=== PATIENT | female | born 1975 | race Caucasian/White ===

== ENCOUNTER 2016-08-24 22:04 | Emergency (ER) | payer MEDICAID ==
[~2016-08-24] VITALS: Ht 162.6 cm; Wt 109.5 kg
[~2016-08-24 22:04] MED LIST: FERR27TA PO; PREN1TAB12 PO
[2016-08-24 22:06] VITALS: Ht 162.6 cm; Wt 109.5 kg
[2016-08-24] MEDS ORDERED: morphine 4 MG/ML VIAL IV STA (23:03)
[2016-08-24] MEDS ORDERED: ONDANSETRON 4 MG INJ IV STA (23:03)
[2016-08-24 23:57] LABS: ADD SCAN DIFF NO
[2016-08-24 23:59] LABS: BASOPHILS % 0.3 % (0.0-2.0); EOSINOPHILS % 0.2 % (0.0-7.0); HEMATOCRIT 40.6 % (37.0-47.0); HEMOGLOBIN 12.7 g/dl (12.0-16.0); LYMPHOCYTES # 1.3 10^3/ul (0.8-2.9); LYMPHOCYTES % 10.6 % (15.0-51.0); MEAN CORPUSCULAR HEMOGLOBIN 25.7 pg (29.0-33.0); MEAN CORPUSCULAR HGB CONC 31.3 g/dl (32.0-37.0); MEAN PLATELET VOLUME 9.3 fl (7.4-10.4); MONOCYTE # 0.7 10^3/ul (0.3-0.9); MONOCYTES % 5.8 % (0.0-11.0); NEUTROPHIL # 10.5 10^3/ul (1.6-7.5); NEUTROPHILS % 82.7 % (39.0-77.0); PLATELET COUNT 362 10^3/UL (140-415); RED BLOOD COUNT 4.95 10^6/ul (4.20-5.40); RED CELL DISTRIBUTION WIDTH 17.2 % (11.5-14.5); WHITE BLOOD COUNT 12.7 10^3/ul (4.8-10.8)
[2016-08-25 00:02] LABS: ADD UMIC YES; URINE BILIRUBIN (Dip) NEGATIVE (NEGATIVE); URINE BLOOD (Dip) TRACE (NEGATIVE); URINE COLOR LT. YELLOW (YELLOW); URINE GLUCOSE (Dip) NEGATIVE (NEGATIVE); URINE KETONES (Dip) NEGATIVE (NEGATIVE); URINE LEUKOCYTE ESTERASE (Dip) NEGATIVE (NEGATIVE); URINE NITRITE (Dip) NEGATIVE (NEGATIVE); URINE TOTAL PROTEIN (Dip) NEGATIVE (NEGATIVE); URINE UROBILINOGEN (Dip) 1.0 E.U./dL (0.1-1.0)
[2016-08-25 00:09] LABS: INR 0.92; PROTIME 12.4 Sec (12.2-14.2)
[2016-08-25 00:12] LABS: ALBUMIN 4.7 g/dl (3.3-4.9); ALBUMIN/GLOBULIN RATIO 5.22; BILIRUBIN,INDIRECT 0.1 mg/dl (0-1.1); BILIRUBIN,TOTAL 0.1 mg/dl (0.2-1.3); CALCIUM 9.4 mg/dl (8.4-10.2); CREATININE 0.82 mg/dl (0.44-1.00); POTASSIUM 4.2 mmol/L (3.5-5.1); TOTAL PROTEIN 5.6 g/dl (6.1-8.1)
--- NOTE | 2016-08-25 00:12 | RADRPT ---
PROCEDURE: Right upper quadrant ultrasound. CLINICAL INDICATION: Abdominal pain. TECHNIQUE: Multiple real-time longitudinal and transverse images of the right upper quadrant of th e abdomen were acquired utilizing a curved array transducer. Images were reviewed on a high-resoluti on PACS workstation. COMPARISON: None. FINDINGS: The pancreas is obscured by overlying bowel gas. The liver is normal in echogenicity. The liver measures 17.3 cm in length. No hepatic lesion or in trahepatic biliary ductal dilatation is seen. The portal vein is patent with hepatopetal flow. Sludge and stones are seen within the gallbladder lumen. A 12 mm stone is seen within the gallbladde r neck. The gallbladder wall is not thickened. There is no pericholecystic fluid. The sonographic M urphy's sign is positive. The common bile duct measures 4 mm in diameter, not dilated. The right kidney measures 10.4 cm in length. Renal echogenicity is normal. Two nonobstructing right renal stones measure up to 8 mm. There is no hydronephrosis or renal mass. The visualized portions of the aorta and IVC are unremarkable. IMPRESSION: 1. Cholelithiasis and a positive sonographic Montes De Oca's sign, suggestive of biliary colic. There is no gallbladder wall thickening to indicate cholecystitis. 2. No biliary dilatation. 3. Two nonobstructing right renal stones measuring up to 8 mm. 4. The pancreas is not visualized. RPTAT: HTAR .Narayan Mcclelland MD, Date Time Electronically viewed and signed by .Narayan Mcclelland MD, on 08/25/2016 00:12 .R/
[2016-08-25] MEDS ORDERED: SOD CHLORIDE 0.9% 100 ML ONE (00:19)
[2016-08-25] MEDS ORDERED: IOHEXOL 300MG/ML 150 ML BTL ONE (00:19)
[2016-08-25 00:24] LABS: PARTIAL THROMBOPLASTIN TIME 27.6 Sec (25.0-35.0)
[2016-08-25 00:29] LABS: BACTERIA,URINE FEW; MUCUS,URINE FEW; SQUAMOUS EPITHELIAL CELL,UR FEW
--- NOTE | 2016-08-25 01:35 | RADRPT ---
PROCEDURE: CT ABDOMEN/PELVIS WITH CONTRAST CLINICAL INDICATION: 40-year-old female with abdominal pain. TECHNIQUE: The study was performed utilizing a GE [email or web address] VCT 64-slice CT scanner. Direct axia l sections were obtained through the abdomen and pelvis with the use of 100 cc of Omnipaque-300 lilliana onic intravenous contrast material. Sagittal and coronal reformations were obtained. One or more of the following dose reduction techniques were utilized: automated exposure control, adjustment of the mA and/or kV according to patient's size or use of iterative reconstruction technique. The images were reviewed on a PACS workstation. CTD/vol = 23.5 mGy; Total Exam DLP = 1536.7 mGy-cm. COMPARISON: Right upper quadrant ultrasound August 24, 2016. FINDINGS: There is trace bibasilar subsegmental atelectasis. There is no evidence for significant pleural eff usion. The liver has a normal size and contour without focal areas of abnormal density or contrast enhancement. No intrahepatic nor extrahepatic biliary ductal dilatation is seen. The gallbladder dem onstrates no wall thickening nor pericholecystic fluid. No biliary stones are evident. The pancreas is without areas of abnormal attenuation or contrast enhancement. This spleen is identified and has a normal size without abnormal density or contrast enhancement. The adrenal glands are unremarkable . The kidneys are functional bilaterally. There is an ovoid hypodense focus within the mid left kid juwan measuring 4 x 4 mm which is too small to characterize by CT criteria. No hydroureteronephrosis n or nephroureterolithiasis is evident. The urinary bladder contains urine. There is mild retained sto ol within the ascending and transverse colon without obstruction. The appendix is visualized and is without edema or surrounding inflammatory reaction. The uterus is anteflexed. There is no signif icant pelvic free fluid. There is no significant free fluid. The aortoiliac vessels are without an eurysmal dilatation. The osseous structures are intact. IMPRESSION: 1. Mild retained stool within the proximal colon. 2. No CT evidence for appendicitis. .Filiberto Edwards MD, Date Time Electronically viewed and signed by .Filiberto Edwards MD, MD on 08/25/2016 01:35 .[place]
[2016-08-25] MEDS ORDERED: DICY10CA60 PO (01:47)
[2016-08-25] MEDS ORDERED: HYDR-906 PO (01:47)
--- NOTE | 2016-08-25 02:21 | ERD ---
ER Documentation Chief Complaint Date/Time DATE: 08/25/16 TIME: 02:16 Chief Complaint epigastric pain today HPI This patient is a 40-year-old female presenting to the emergency department for epigastric pain which began today. Symptoms are worsening. She is also had nausea. Pain radiates to the back. She denies chest pain, or shortness of breath, fevers, chills, or other symptoms. Symptoms are currently constant. No other symptoms reported currently. ROS All systems reviewed and are negative except as per history of present illness. Medications Home Meds Active Scripts Dicyclomine Hcl* (Bentyl*) 10 Mg Capsule, 10 MG PO QID, #15 CAP Prov:NATANAEL MARTINEZ PA-C 08/25/16 Hydrocodone/Acetaminophen (Emigrant 5-325 Tablet) 1 Each Tablet, 1 TAB PO Q6H Y for PAIN, #15 TAB Prov:NATANAEL MARTINEZ PA-C 08/25/16 Reported Medications Ferrous Sulfate (Iron) 1 Tab Tablet, 1 TAB PO 01/11/11 Vit/Fe Fumarate/Fa ( 1-1 Tablet) 1 Tab Tablet, 1 PO DAILY 01/11/11 Allergies Allergies: Coded Allergies: No Known Drug Allergies (Verified Allergy, 01/11/11) PMhx/Soc Medical and Surgical Hx: pt denies Medical Hx, pt denies Surgical Hx Hx Alcohol Use: No Hx Substance Use: No Hx Tobacco Use: No Smoking Status: Never smoker Physical Exam Vitals Vital Signs Date Time Temp Pulse Resp B/P Pulse Ox O2 Delivery O2 Flow Rate FiO2 08/24/16 22:06 98.6 88 20 166/77 100 Physical Exam Const: Nontoxic, well-appearing female in slight distress secondary to pain. Head: Atraumatic Eyes: Normal Conjunctiva ENT: Normal External Ears, Nose and Mouth. Neck: Full range of motion..~ No meningismus. Resp: Clear to auscultation bilaterally Cardio: Regular rate and rhythm, no murmurs Abd: Soft, there is tenderness palpation of the right upper quadrant, positive Montes De Oca sign, non distended. Normal bowel sounds Skin: No petechiae or rashes Back: No midline or flank tenderness Ext: No cyanosis, or edema Neur: Awake and alert Psych: Normal Mood and Affect Result Diagram: 08/24/16 6158 08/24/16 2348 Results 24 hrs Laboratory Tests Test 08/24/16 23:31 08/24/16 23:48 Urine Color LT. YELLOW Urine Clarity CLEAR Urine pH 6.0 Urine Specific Tiller 1.025 Urine Ketones NEGATIVE Urine Nitrite NEGATIVE Urine Bilirubin NEGATIVE Urine Urobilinogen 1.0 E.U./dL Urine Leukocyte Esterase NEGATIVE Urine Microscopic RBC 2-5/HPF Urine Microscopic WBC 0-2/HPF Urine Squamous Epithelial Cells FEW Urine Bacteria FEW Urine Mucus FEW Urine Hemoglobin TRACE Urine Glucose NEGATIVE% Urine Total Protein NEGATIVE White Blood Count 12.710^3/ul Red Blood Count 4.9510^6/ul Hemoglobin 12.7g/dl Hematocrit 40.6% Mean Corpuscular Volume 82.0fl Mean Corpuscular Hemoglobin 25.7pg Mean Corpuscular Hemoglobin Concent 31.3g/dl Red Cell Distribution Width 17.2% Platelet Count 68741^3/UL Mean Platelet Volume 9.3fl Neutrophils % 82.7% Lymphocytes % 10.6% Monocytes % 5.8% Eosinophils % 0.2% Basophils % 0.3% Nucleated Red Blood Cells % 0.0/100WBC Neutrophils # 10.510^3/ul Lymphocytes # 1.310^3/ul Monocytes # 0.710^3/ul Eosinophils # 0.010^3/ul Basophils # 0.010^3/ul Nucleated Red Blood Cells # 0.010^3/ul Prothrombin Time 12.4Sec Prothrombin Time Ratio 1.0 INR International Normalized Ratio 0.92 Activated Partial Thromboplast Time 27.6Sec Sodium Level 144mmol/L Potassium Level 4.2mmol/L Chloride Level 107mmol/L Carbon Dioxide Level 26mmol/L Anion Gap 15 Blood Urea Nitrogen 20mg/dl Creatinine 0.82mg/dl Glucose Level 109mg/dl Calcium Level 9.4mg/dl Total Bilirubin 0.1mg/dl Direct Bilirubin 0.00mg/dl Indirect Bilirubin 0.1mg/dl Aspartate Amino Transf (AST/SGOT) 100IU/L Alanine Aminotransferase (ALT/SGPT) 59IU/L Alkaline Phosphatase 124IU/L Total Protein 5.6g/dl Albumin 4.7g/dl Globulin 0.90g/dl Albumin/Globulin Ratio 5.22 Lipase 85U/L Current Medications Medications (Trade) Dose Ordered Sig/Patric Route PRN Reason Start Time Stop Time Status Last Admin Dose Admin Morphine Sulfate (morphine) 4 mg ONCE STAT IV 08/24/16 23:03 08/24/16 23:07 DC 08/24/16 23:51 Ondansetron HCl (Zofran Inj) 4 mg ONCE STAT IV 08/24/16 23:03 08/24/16 23:07 DC 08/24/16 23:51 IV Flush 10 ml 10 ml STK-MED ONCE .ROUTE 08/25/16 00:19 08/25/16 00:20 DC 08/25/16 00:45 Sodium Chloride (NS) 100 ml @ ud STK-MED ONCE .ROUTE 08/25/16 00:19 08/25/16 00:20 DC 08/25/16 00:45 Iohexol (Omnipaque 300mg/ ml) 150 ml STK-MED ONCE .ROUTE 08/25/16 00:19 08/25/16 00:20 DC 08/25/16 00:45 [place] [address] Radiology Main Line: [phone] DIAGNOSTIC IMAGING REPORT Patient: CONRADO QUIÑONEZ : 1975 Age: 40 Sex: F MR #: [id number] DOS: 08/24/16 2303 Ordering MD: NATANAEL MARTINEZ PA-C Location: [facility] Room/Bed: PROCEDURE: CT ABDOMEN/PELVIS WITH CONTRAST CLINICAL INDICATION: 40-year-old female with abdominal pain. TECHNIQUE: The study was performed utilizing a GE xkotopeed VCT 64-slice CT scanner. Direct axial sections were obtained through the abdomen and pelvis with the use of 100 cc of Omnipaque-300 nonionic intravenous contrast material. Sagittal and coronal reformations were obtained. One or more of the following dose reduction techniques were utilized: automated exposure control, adjustment of the mA and/or kV according to patient's size or use of iterative reconstruction technique. The images were reviewed on a PACS workstation. CTD/ vol = 23.5 mGy; Total Exam DLP = 1536.7 mGy-cm. COMPARISON: Right upper quadrant ultrasound August 24, 2016. FINDINGS: There is trace bibasilar subsegmental atelectasis. There is no evidence for significant pleural effusion. The liver has a normal size and contour without focal areas of abnormal density or contrast enhancement. No intrahepatic nor extrahepatic biliary ductal dilatation is seen. The gallbladder demonstrates no wall thickening nor pericholecystic fluid. No biliary stones are evident. The pancreas is without areas of abnormal attenuation or contrast enhancement. This spleen is identified and has a normal size without abnormal density or contrast enhancement. The adrenal glands are unremarkable. The kidneys are functional bilaterally. There is an ovoid hypodense focus within the mid left kidney measuring 4 x 4 mm which is too small to characterize by CT criteria. No hydroureteronephrosis nor nephroureterolithiasis is evident. The urinary bladder contains urine. There is mild retained stool within the ascending and transverse colon without obstruction. The appendix is visualized and is without edema or surrounding inflammatory reaction. The uterus is anteflexed. There is no significant pelvic free fluid. There is no significant free fluid. The aortoiliac vessels are without aneurysmal dilatation. The osseous structures are intact. IMPRESSION: 1. Mild retained stool within the proximal colon. 2. No CT evidence for appendicitis. .Filiberto Edwards MD, MD Date Time Electronically viewed and signed by .Filiberto Edwards MD, on 08/25/2016 01:35 .M/ CC: NATANAEL MARTINEZ PA-C PROCEDURE: Right upper quadrant ultrasound. CLINICAL INDICATION: Abdominal pain. TECHNIQUE: Multiple real-time longitudinal and transverse images of the right upper quadrant of the abdomen were acquired utilizing a curved array transducer. Images were reviewed on a high-resolution PACS workstation. COMPARISON: None. FINDINGS: The pancreas is obscured by overlying bowel gas. The liver is normal in echogenicity. The liver measures 17.3 cm in length. No hepatic lesion or intrahepatic biliary ductal dilatation is seen. The portal vein is patent with hepatopetal flow. Sludge and stones are seen within the gallbladder lumen. A 12 mm stone is seen within the gallbladder neck. The gallbladder wall is not thickened. There is no pericholecystic fluid. The sonographic Montes De Oca's sign is positive. The common bile duct measures 4 mm in diameter, not dilated. The right kidney measures 10.4 cm in length. Renal echogenicity is normal. Two nonobstructing right renal stones measure up to 8 mm. There is no hydronephrosis or renal mass. The visualized portions of the aorta and IVC are unremarkable. IMPRESSION: 1. Cholelithiasis and a positive sonographic Montes De Oca's sign, suggestive of biliary colic. There is no gallbladder wall thickening to indicate cholecystitis. 2. No biliary dilatation. 3. Two nonobstructing right renal stones measuring up to 8 mm. 4. The pancreas is not visualized. RPTAT: HTAR .Narayan Mcclelland MD, MD Date Time Electronically viewed and signed by .Narayan Mcclelland MD, MD on 08/25/2016 00:12 .R/ Procedures/[facility] EMERGENCY DEPARTMENT COURSE / MEDICAL DECISION MAKING: This is a 40-year-old female who comes to the emergency room secondary to complaints of midepigastric and right upper abdominal pain. The patient was given IV morphine, IV Zofran in the department. On re-evaluation , the patient was feeling improved. Lab results reviewed and showed slight leukocytosis with left shift but not significant. AST was slightly elevated at 100 but not significant and may be due to fatty liver disease or incidental finding. The patient was advised to follow-up with her primary care physician regarding all abnormal lab results. Urinalysis is negative for infection, hematuria, or proteinuria. Radiology: IMPRESSION of gall bladder US: 1. Cholelithiasis and a positive sonographic Montes De Oca's sign, suggestive of biliary colic. There is no gallbladder wall thickening to indicate cholecystitis. 2. No biliary dilatation. 3. Two nonobstructing right renal stones measuring up to 8 mm. 4. The pancreas is not visualized. IMRESSION of abd CT scan: 1. Mild retained stool within the proximal colon. 2. No CT evidence for appendicitis. The primary diagnosis is gallstones. I have low suspicion for cholecystitis, appendicitis, bowel obstruction, mesenteric ischemia, septicemia, or other emergent conditions at this time. Discharge: I have discussed the lab results and diagnostic findings with the patient and answered any questions or concerns. The patient was discharged with a prescription for Emigrant. The patient was advised to followup with their PMD in 1-2 days and to return to the Emergency Department if there are any new or worsening symptoms. The patient understood and agreed with the diagnosis, treatment and plan. The patient is stable for discharge at this time. Departure Diagnosis: Primary Impression: Gallstones Condition: Fair Patient Instructions: What Are Gallstones? Additional Instructions: No mas mejor en 2-3 padgett, regresar. Mas peor en 24 horas, regresear rapidamente. Ir a doctor primario in 5-7 padgett. Usar instrucciones cuando marko medicamento. NATANAEL MARTINEZ PA-C Aug 25, 2016 02:21
== END 2016-08-25 01:48 | disposition home or self-care (01) ==
LOC: FTE 22:04
DX: K80.20 Calculus of gallbladder without cholecystitis without obstruction (principal); R10.2 Pelvic and perineal pain
CPT/HCPCS: 36415; 74177; 76705; 80053; 81001; 83690; 85025; 85610; 85730; 96374; 96375; J2270; J2405; Q9967; Z7502; Z7610

== ENCOUNTER 2016-08-25 11:38 | Inpatient (IN) | payer MEDICAID ==
[~2016-08-25] VITALS: Ht 167.6 cm; Wt 109.1 kg
[~2016-08-25 11:38] MED LIST changes: +DICY10CA60 PO; +HYDR-906 PO
[2016-08-25] MEDS ORDERED: ONDANSETRON (ODT) 4 MG TAB ODT STA (12:46)
--- NOTE | 2016-08-25 12:46 | ERD ---
ER Documentation Chief Complaint Date/Time DATE: 08/25/16 TIME: 12:41 Chief Complaint ap with nausea x 1 day HPI 40-year-old female who presented emergency department for abdominal pain with nausea. Stated that she was here yesterday for the same complaint, diagnostic imaging, blood works was done and was discharged with final diagnosis of gallstones and was prescribed with hydrocodone, dicyclomine. Denies headache, loss of consciousness, dizziness, blurry vision, changes in vision, photophobia, facial pain, ear pain, throat pain, difficulty swallowing, neck pain, shoulder pain, chest pain, cough, hemoptysis, back pain, loss of appetite, hematochezia, diarrhea, constipation, urinary symptoms, , the possibility of being , bladder and bowel incontinences, extremity weakness, extremity tenderness, numbness or tingling sensation, difficulty walking, recent travel, recent exposure to illness, recent antibiotic use in the last 3 months, fever, chills. Allergy: No known drug allergies. PMH: Denies. Family medical history: Denies. A0. LMP: August 12, 2016. Medications: Hydrocodone. Dicyclomine. Surgery: Denies. Primary Social History: Not working at this time. Occasional drinks alcoholic beverages. Denies smoking, use of illegal drugs. ROS All systems reviewed and are negative except as per history of present illness. Medications Home Meds Active Scripts Dicyclomine Hcl* (Bentyl*) 10 Mg Capsule, 10 MG PO QID, #15 CAP Prov:NATANAEL MARTINEZ PA-C 08/25/16 Hydrocodone/Acetaminophen ([place] 5-325 Tablet) 1 Each Tablet, 1 TAB PO Q6H Y for PAIN, #15 TAB Prov:NATANAEL MARTINEZ PA-C 08/25/16 Reported Medications Ferrous Sulfate (Iron) 1 Tab Tablet, 1 TAB PO 01/11/11 Vit/Fe Fumarate/Fa ( 1-1 Tablet) 1 Tab Tablet, 1 PO DAILY 01/11/11 Allergies Allergies: Coded Allergies: No Known Drug Allergies (Verified Allergy, Unknown, 08/25/16) PMhx/Soc Hx Alcohol Use: No Hx Substance Use: No Hx Tobacco Use: No Physical Exam Vitals Vital Signs Date Time Temp Pulse Resp B/P Pulse Ox O2 Delivery O2 Flow Rate FiO2 6/14/17 11:47 98.7 67 18 130/67 100 Physical Exam CONSTITUTIONAL: Well-appearing; well-nourished; in no apparent distress. HEAD: Normocephalic; atraumatic. EYES: Conjunctiva clear, sclera non-icteric, EOM intact. PERRL Ears: Hearing intact. EACs clear, TMs non-bulging, non-inflamed, translucent & mobile, ossicles normal appearance, No obstructions, no erythema, no discharges Nose: No obstructions. No polyps. No external lesions. Mucosa non-inflamed. No external lesions, septum and turbinates normal. No rhinorrhea. No discharges. Frontal sinus is non-tender to palpation. Maxillary sinus is non-tender to palpation. MOUTH: Moist mucous membranes, no lesion, no obstructions, no vesicles, no thrush, patent airway Throat: Uvula in midline. Right tonsil is +1 with no erythema, no exudate. Left tonsil is +1 with no erythema, no exudate. Tolerating secretions well. Good gag reflex. Patent airway. Neck: Supple, without lesions, bruits, or adenopathy. No mass. Thyroid non- enlarged and non-tender to palpation. CHEST: Symmetrical chest. Respirations even and not labored. No retractions noted. CARDIOVASCULAR: Normal S1, S2. RRR. No murmurs, gallops. RESPIRATORY: Normal chest excursion with respiration; breath sounds clear and equal bilaterally; no wheezes, rhonchi, or rales. Breathing even and unlabored. Speaking in clear, full, and complete sentences w/ ease. ABDOMEN: Normal bowel sounds normal. No pulsating abdominal mass. Mild guarding at this time. His right upper abdominal tenderness on inspiration. : No CVA tenderness. BACK: Symmetrical shoulder. Spine is midline without deformity, tenderness. No evidence of trauma or deformity. PELVIS: Stable pelvis. No evidence of trauma or deformity. MUSCULOSKELETAL: Normal gait and station. No misalignment, asymmetry, crepitation, defects, tenderness, masses, effusions, decreased range of motion, instability, atrophy or abnormal strength or tone in the head, neck, spine, ribs , pelvis or extremities. No calf tenderness. NEUROVASCULAR: Distal pulses are present. Pedal pulse are present, equal, and normal. Capillary refills are < 2 seconds. NEUROLOGIC: Alert and oriented x4. Speaks full and clear sentences. Cranial Nerves II-XII normal. Sensation to pain, touch, and proprioception normal. Grossly unremarkable. No neurologic deficits. Romberg test is negative. PSYCHOLOGICAL: The patients mood and manner are appropriate. No hallucinations , delusions. Not SI. Not HI. Has the capacity to decide for self SKIN: Normal for age and ethnicity; warm; dry; good turgor; no apparent lesions or exudates. No rashes, hives, discoloration. Intact. Result Diagram: 08/25/16 1305 08/25/16 1305 Results 24 hrs Laboratory Tests Test 08/25/16 13:05 08/25/16 13:11 White Blood Count 8.410^3/ul Red Blood Count 5.3910^6/ul Hemoglobin 13.6g/dl Hematocrit 44.5% Mean Corpuscular Volume 82.6fl Mean Corpuscular Hemoglobin 25.2pg Mean Corpuscular Hemoglobin Concent 30.6g/dl Red Cell Distribution Width 17.6% Platelet Count 38385^3/UL Mean Platelet Volume 9.7fl Neutrophils % 77.4% Lymphocytes % 14.0% Monocytes % 7.9% Eosinophils % 0.1% Basophils % 0.2% Nucleated Red Blood Cells % 0.0/100WBC Neutrophils # 6.510^3/ul Lymphocytes # 1.210^3/ul Monocytes # 0.710^3/ul Eosinophils # 0.010^3/ul Basophils # 0.010^3/ul Nucleated Red Blood Cells # 0.010^3/ul Sodium Level 142mmol/L Potassium Level 4.1mmol/L Chloride Level 105mmol/L Carbon Dioxide Level 29mmol/L Anion Gap 12 Blood Urea Nitrogen 12mg/dl Creatinine 0.73mg/dl Glucose Level 105mg/dl Calcium Level 9.4mg/dl Total Bilirubin 0.6mg/dl Direct Bilirubin 0.10mg/dl Indirect Bilirubin 0.5mg/dl Aspartate Amino Transf (AST/SGOT) 295IU/L Alanine Aminotransferase (ALT/SGPT) 210IU/L Alkaline Phosphatase 172IU/L Total Protein 8.3g/dl Albumin 5.0g/dl Globulin 3.30g/dl Albumin/Globulin Ratio 1.51 Amylase Level 97U/L Lipase 80U/L Bedside Urine pH (LAB) 6.5 Bedside Urine Protein (LAB) Trace Bedside Urine Glucose (UA) Negative Bedside Urine Ketones (LAB) Negative Bedside Urine Blood Trace-lysed Bedside Urine Nitrite (LAB) Negative Bedside Urine Leukocyte Esterase (L Negative Current Medications Medications (Trade) Dose Ordered Sig/Patric Route PRN Reason Start Time Stop Time Status Last Admin Dose Admin Ondansetron HCl (Zofran Odt) 4 mg ONCE STAT ODT 08/25/16 12:46 08/25/16 12:48 DC 08/25/16 12:59 Acetaminophen/ Hydrocodone Bitart ([place] (10/325)) 1 tab ONCE ONCE PO 08/25/16 13:00 08/25/16 13:01 DC 08/25/16 12:59 Ondansetron HCl (Zofran Inj) 4 mg ONCE STAT IV 08/25/16 13:28 08/25/16 13:29 DC 08/25/16 14:30 Metoclopramide HCl (Reglan) 10 mg ONCE ONCE IV 08/25/16 14:30 08/25/16 14:31 DC 08/25/16 14:30 Morphine Sulfate (morphine) 4 mg ONCE STAT IV 08/25/16 14:08 08/25/16 14:14 DC 08/25/16 14:30 Procedures/MDM Examination: Please see physical examination. Disease process, medical treatment was explained to the patient and family member. They verbalized understanding and agreed with the diagnostic tests, medical treatment, and follow-up care. POC urine : Negative. POC urine dipstick: Reviewed. Blood works: Reviewed. Treatment: [place]. Zofran. IV insertion. Morphine IV. Reglan IV. Consultation: None. Differential diagnosis: Cholelithiasis Medical decision makin-year-old female who presented emergency department for abdominal pain with nausea. Stated that she was here yesterday for the same complaint, diagnostic imaging, blood works was done and was discharged with final diagnosis of gallstones and was prescribed with hydrocodone, dicyclomine. Patient's complaint, patient's history about her complaint, my physical findings, diagnostic test results are consistent with my final diagnosis of abdominal pain, cholelithiasis This case was discussed with attending physician, Dr. Nolan Cohen who agreed in my medical decision making. He also agreed to take over and continue to care for the patient. He also stated that he will continue the admission process for this patient. Departure Diagnosis: Primary Impression: Abdominal pain Additional Impression: Cholelithiasis TRIP BLISS Aug 25, 2016 12:46 back here in ED as soon as possible for severity of symptoms which includes but not limited to: any new symptoms; shortness of breath/difficulty of breathing; cardiovascular changes; severe gastrointestinal symptoms; signs and symptoms of bleeding and or infection; signs of compartment syndrome/neurovascular changes; neurological changes/deficits. Patient and family member verbalized understanding. Upon discharge, patient is alert and oriented x 4, speaks full and clear sentences, denies pain, has no neurological deficits, has no neurovascular deficits, difficulty of breathing. Breathing even and unlabored. Lung sounds are clear to auscultation. Not in distress. Appears comfortable. Ambulatory with steady gait. Appears satisfied with care provided here in ED. TRIP BLISS Aug 25, 2016 12:46
[2016-08-25] MEDS ORDERED: HYDROCODONE/APAP (10/325) TAB PO ONE (13:00)
[2016-08-25 13:08] LABS: URINE BLOOD (Dip) POC Trace-lysed (NEGATIVE)
[2016-08-25 13:13] LABS: ADD SCAN DIFF NO
[2016-08-25 13:25] LABS: BASOPHILS % 0.2 % (0.0-2.0); EOSINOPHILS % 0.1 % (0.0-7.0); HEMATOCRIT 44.5 % (37.0-47.0); HEMOGLOBIN 13.6 g/dl (12.0-16.0); LYMPHOCYTES # 1.2 10^3/ul (0.8-2.9); MEAN CORPUSCULAR HEMOGLOBIN 25.2 pg (29.0-33.0); MEAN CORPUSCULAR HGB CONC 30.6 g/dl (32.0-37.0); MEAN CORPUSCULAR VOLUME 82.6 fl (82.0-101.0); MEAN PLATELET VOLUME 9.7 fl (7.4-10.4); MONOCYTE # 0.7 10^3/ul (0.3-0.9); MONOCYTES % 7.9 % (0.0-11.0); NEUTROPHIL # 6.5 10^3/ul (1.6-7.5); NEUTROPHILS % 77.4 % (39.0-77.0); PLATELET COUNT 353 10^3/UL (140-415); RED BLOOD COUNT 5.39 10^6/ul (4.20-5.40); RED CELL DISTRIBUTION WIDTH 17.6 % (11.5-14.5); WHITE BLOOD COUNT 8.4 10^3/ul (4.8-10.8)
[2016-08-25] MEDS ORDERED: ONDANSETRON 4 MG INJ IV STA (13:28)
[2016-08-25 13:37] LABS: ALBUMIN/GLOBULIN RATIO 1.51; BILIRUBIN,DIRECT 0.1 mg/dl (0.00-0.20); BILIRUBIN,INDIRECT 0.5 mg/dl (0-1.1); BILIRUBIN,TOTAL 0.6 mg/dl (0.2-1.3); CALCIUM 9.4 mg/dl (8.4-10.2); CREATININE 0.73 mg/dl (0.44-1.00); POTASSIUM 4.1 mmol/L (3.5-5.1); TOTAL PROTEIN 8.3 g/dl (6.1-8.1)
[2016-08-25] MEDS ORDERED: morphine 4 MG/ML VIAL IV STA (14:08)
[2016-08-25] MEDS ORDERED: METOCLOPRAMIDE 10 MG INJ IV ONE (14:30)
[2016-08-25] MEDS ORDERED: ONDANSETRON 4 MG INJ IV PRN ×2 (17:00→17:30)
[2016-08-25] MEDS ORDERED: ACETAMINOPHEN 325 MG TAB PO PRN (17:00)
[2016-08-25] MEDS ORDERED: MAGNESIUM HYDROXIDE 30ML CUP PO PRN (17:30)
[2016-08-25] MEDS ORDERED: BISACODYL (EC) 5 MG TAB PO PRN (17:30)
[2016-08-25] MEDS ORDERED: METOCLOPRAMIDE 10 MG INJ IV PRN (17:30)
[2016-08-25] MEDS ORDERED: NACL 0.9% 3 ML SYG IV SCH (17:30)
[2016-08-25] MEDS ORDERED: morphine 2 MG INJ IV PRN (17:30)
[2016-08-25] MEDS ORDERED: HYDROCODONE/APAP (5/325) TAB PO PRN (17:30)
[2016-08-25 19:29] VITALS: PULSE 63; TEMP 98.1
--- NOTE | 2016-08-25 19:40 | HP ---
DATE OF ADMISSION: 08/25/2016 TIME OF EVALUATION: 1700 REASON FOR ADMISSION: Abdominal pain with nausea and vomiting x1 day. CONSULTATION: Dr. Link Hernandez, General Surgery. HISTORY OF PRESENT ILLNESS: This is a 40-year-old female who denied any significant past medical history who came to the emergency room with a chief complaint of abdominal pain with associated nausea and nonbilious, nonbloody vomiting. The patient was seen in the emergency room on 08/24/2016 with similar complaints and was noticed to have cholelithiasis and was discharged home with [place] and dicyclomine. The patient's pain was not getting better. Hence, she came back to the emergency room on 08/25/2016. The patient verbalized the abdominal pain as epigastric with radiation to the right side all the way to the lumbar spine. The patient verbalized 3 episodes of nonbilious vomiting on 08/24/2016 and 1 episode of nonbilious vomiting on 2016. The patient denied any fevers or chills. She denied any bladder or bowel irregularities. The patient denied any prior history of gallstones. In the emergency room, the patient was noticed to have transaminitis without hyperbilirubinemia. The patient's gallbladder ultrasound that was done on 08/24 showed cholelithiasis and a positive sonographic Mont[place] Oca sign suggestive of biliary colic with no gallbladder wall thickening to indicate cholecystitis with 2 nonobstructing right renal stones measuring up to 8 mm. The patient also underwent a CT scan of the abdomen and pelvis on 08/24/2016 that showed mild retained stool within the proximal colon with no evidence of appendicitis. PAST MEDICAL HISTORY: Denies. PAST SURGICAL HISTORY: . HOME MEDICATIONS: None. ALLERGIES: NO KNOWN DRUG ALLERGIES. SOCIAL HISTORY: The patient lives at home with her family. No use of tobacco, alcohol or illicit drugs. REVIEW OF SYSTEMS: A 12-point review of systems was made, and the review of systems is negative other than what is mentioned in the history of present illness. PHYSICAL EXAMINATION: VITAL SIGNS: Temperature 98.0, pulse rate 68, respiratory rate 18, blood pressure 114/69, oxygen saturation 98% on room air. GENERAL: This is a morbidly obese female lying in bed in no apparent distress. HEENT: Head normocephalic and atraumatic. Eyes: Anicteric sclerae. Conjunctivae clear. ENT: Nasal septum is midline. Oral mucosa is dry. NECK: Supple. No JVD noticed. RESPIRATORY: Bilaterally clear to auscultation. No adventitious breath sounds heard. No use of accessory muscles of respiration. CARDIAC: Regular rate and rhythm. No murmurs heard. ABDOMEN: Soft and nontender. Bowel sounds hypoactive in all 4 quadrants. Umbilical hernia, reducible. GENITOURINARY: Deferred. EXTREMITIES: No cyanosis, no clubbing, no edema. Peripheral pulses palpable. NEUROLOGIC: The patient is awake, alert and oriented. Cranial nerves are grossly intact. LABORATORY AND DIAGNOSTIC DATA: WBC 8.4, hemoglobin 13.6, hematocrit 44.5, platelet count 353. Sodium 142, potassium 4.1, chloride 105, anion gap 12, BUN 12, creatinine 0.73, glucose 105 , calcium 9.4, total bilirubin 0.6, direct bilirubin 0.10, indirect bilirubin 0.5, AST 295, ALT 210, alkaline phosphatase 172. Urinalysis: Urine ketones negative, urine nitrite negative, urine leukocyte esterase negative. CT scan of the abdomen and pelvis from 08/24/2016. Mild retained stool within the proximal colon. No CT evidence for appendicitis. Gallbladder ultrasound from 08/24/2016. Cholelithiasis and positive sonographic Montes De Oca sign suggestive of biliary colic. There is no gallbladder wall thickening to indicate cholecystitis. No biliary dilatation. Two nonobstructing right renal stones measuring up to 8 mm. The pancreas is not visualized. IMPRESSION: This is a 40-year-old female patient who is coming to the emergency room for the second time secondary to abdominal pain who was found to have evidence of cholelithiasis and will be admitted here for further treatment and evaluation. ASSESSMENT AND PLAN: 1. Symptomatic cholelithiasis. The patient will be provided with adequate pain control. The patient will be kept n.p.o. A general surgery consult will be called on this patient. The patient will be started on empiric antibiotics to treat any early cholangitis. 2. Transaminitis. Most probably secondary to #1. Will avoid hepatotoxic medications. Will trend LFTs. 3. Morbid obesity. Body mass index of 39.6 kg/meter squared. A fasting lipid panel will be obtained. A hemoglobin A1c will be obtained. Weight reduction will be advised. Plan. The patient will be admitted to inpatient medical/surgical floor. The patient will be kept n.p.o. except for medications. The patient will be started on IV fluids. The patient will be started on DVT prophylaxis and gastrointestinal prophylaxis. The patient will remain a FULL CODE. Activities will be as tolerated. The rest of the patient's management will be based on the clinical course, the results of diagnostic studies and input from consultants. Based on the patient's clinical presentation, she most probably requires at least 1 midnight's stay for further management and evaluation of her clinical presentation. The case and management of this patient was fully discussed with Dr. Sierra. ESTEPHANIE SIERRA MD, AM/MADDISON Conf#: [id number] DID#: [id number] MTDD
[2016-08-25 20:05] VITALS: Ht 167.6 cm; Wt 109.1 kg
[2016-08-25 20:19] VITALS: BP 106/59; RESP 18
--- NOTE | 2016-08-25 20:43 | CONS ---
DATE OF ADMISSION: 08/25/2016 DATE OF CONSULTATION: 08/25/2016 REASON FOR CONSULTATION: Abdominal pain. HISTORY OF PRESENT ILLNESS: The patient is an obese 40-year-old female who presented to [facility] emergency room complaining of epigastric and right upper quadrant abdominal pain. This pain has b een associated with nausea, but no vomiting. She was seen in the emergency room yesterday and diagn osed with gallstones without any evidence of acute cholecystitis on ultrasound or CT scan. She was therefore sent home with pain medication. However, her pain persisted and [facility] On arrival to the emergency room at this visit, she was found to have elevated transamin ases, though her bilirubin level was normal. Currently, she is comfortable in bed and her abdominal pain has resolved. She denies any abdominal pain to me at this time. She also denies any diarrhea , constipation, or fever/chills. PAST MEDICAL HISTORY: Otherwise negative. PAST SURGICAL HISTORY: . MEDICATIONS: None. ALLERGIES: NO KNOWN DRUG ALLERGIES. SOCIAL HISTORY: The patient does not smoke, drink, or do any illicit drugs. REVIEW OF SYSTEMS: A 14-point review of systems was conducted and was negative except for that whic h was mentioned in the HPI. PHYSICAL EXAMINATION: VITAL SIGNS: Temperature is 98.0, pulse 68, respirations 18, blood pressure 114/69, O2 saturation i s 98% on room air. GENERAL APPEARANCE: She is a well-developed, well-nourished, obese female who is awake, al ert, and oriented x3 and in no acute distress at this time. HEENT: Pupils are equal and reactive to light and accommodation. Extraocular muscles are intact. There is no scleral icterus. Skin is not jaundiced. NECK: Supple without JVD. CARDIOVASCULAR: S1, S2. Regular rate and rhythm. No murmurs appreciated. RESPIRATORY: Clear to auscultation bilaterally. ABDOMEN: Obese, soft. Bowel sounds are present. There is no epigastric or right upper quadrant te nderness at this time. Her abdominal exam is benign at this time. There is no evidence of rebound or guarding, or other signs of peritonitis. EXTREMITIES: Free range of motion x4. LABORATORY WORK: Shows a white blood cell count of 8.4, hemoglobin 13.6, platelet count of 353. So dium is 142, potassium is 4.1, chloride is 105, bicarbonate is 29, BUN 12, creatinine 0.73, glucose is 105. Albumin is 5.0. Total bilirubin 0.6, alkaline phosphatase 172, AST 295, ALT 210. Lipase i s 80. IMAGING STUDIES: A CT scan done yesterday shows mild retained stone within the proximal colon. The re is no evidence of acute cholecystitis. A gallbladder ultrasound done yesterday shows gallstones without any gallbladder wall thickening or pericholecystic fluid. RECOMMENDATIONS: This is a 40-year-old female with symptomatic cholelithiasis and possible choledoc holithiasis. Given the patient's elevated transaminases, it is likely that she passed a common bile duct stone. She is being admitted by the medical team for observation. MRCP is being ordered to evaluate for ch oledocholithiasis. If MRCP is positive for choledocholithiasis, then she will likely need GI consul tation with ERCP. If it is negative for choledocholithiasis and she remains pain free, then the pat ient could be discharged with outpatient followup for elective cholecystectomy. The above was discussed with the patient and the ER physician in detail. Further recommendations wi ll be made based on the patient's clinical course. Dictated By: SENTHIL GREEN/MADDISON Conf#: [id number] DID#: [id number] CC: JACOB SIERRA MD;*EndCC*
[2016-08-25] MEDS: D5W-0.45 NACL + KCL 20 MEQ 1,000 ML IV SCH (21:38)
[2016-08-25] MEDS: PIPER-TAZO 3.375 GM IV (PMX) 100 ML IVPB SCH (21:38)
[2016-08-25] MEDS: FAMOTIDINE 20 MG INJ IV SCH (23:05)
[2016-08-26] MEDS: D5W-0.45 NACL + KCL 20 MEQ 1,000 ML IV SCH ×3 (03:08→20:55)
[2016-08-26] MEDS: PIPER-TAZO 3.375 GM IV (PMX) 100 ML IVPB SCH ×3 (05:21→21:01)
[2016-08-26 05:25] LABS: ADD SCAN DIFF NO
[2016-08-26] MEDS: ACETAMINOPHEN 325 MG TAB PO PRN ×3 (05:26→23:03)
[2016-08-26 05:31] LABS: BASOPHILS % 0.8 % (0.0-2.0); EOSINOPHILS # 0.1 10^3/ul (0.0-0.5); EOSINOPHILS % 1.3 % (0.0-7.0); HEMATOCRIT 38.6 % (37.0-47.0); HEMOGLOBIN 11.8 g/dl (12.0-16.0); LYMPHOCYTES # 1.6 10^3/ul (0.8-2.9); LYMPHOCYTES % 29.7 % (15.0-51.0); MEAN CORPUSCULAR HEMOGLOBIN 25.5 pg (29.0-33.0); MEAN CORPUSCULAR HGB CONC 30.6 g/dl (32.0-37.0); MEAN CORPUSCULAR VOLUME 83.5 fl (82.0-101.0); MEAN PLATELET VOLUME 9.7 fl (7.4-10.4); MONOCYTE # 0.5 10^3/ul (0.3-0.9); MONOCYTES % 9.9 % (0.0-11.0); NEUTROPHIL # 3.1 10^3/ul (1.6-7.5); NEUTROPHILS % 57.9 % (39.0-77.0); PLATELET COUNT 318 10^3/UL (140-415); RED BLOOD COUNT 4.62 10^6/ul (4.20-5.40); RED CELL DISTRIBUTION WIDTH 17.7 % (11.5-14.5); WHITE BLOOD COUNT 5.3 10^3/ul (4.8-10.8)
[2016-08-26 05:45] LABS: PROTIME 13.2 Sec (12.2-14.2)
[2016-08-26 05:46] LABS: PARTIAL THROMBOPLASTIN TIME 27.9 Sec (25.0-35.0)
[2016-08-26 06:09] LABS: CHOL/HDL RATIO 2.2 RATIO; MAGNESIUM 2.2 mg/dl (1.7-2.5); PHOSPHORUS 4.2 mg/dl (2.5-4.9)
[2016-08-26 06:19] LABS: ALBUMIN 4.2 g/dl (3.3-4.9); ALBUMIN/GLOBULIN RATIO 1.61; BILIRUBIN,INDIRECT 0.5 mg/dl (0-1.1); BILIRUBIN,TOTAL 0.5 mg/dl (0.2-1.3); CALCIUM 8.6 mg/dl (8.4-10.2); CREATININE 0.75 mg/dl (0.44-1.00); POTASSIUM 4.3 mmol/L (3.5-5.1); TOTAL PROTEIN 6.8 g/dl (6.1-8.1)
[2016-08-26 07:45] VITALS: BP 104/60; RESP 18
[2016-08-26] MEDS: FAMOTIDINE 20 MG INJ IV SCH ×2 (09:48→20:56)
[2016-08-26 10:30] LABS: HAAIG REFLEX REFLEX FILED
--- NOTE | 2016-08-26 10:50 | PN ---
Date/Time of Note Date/Time of Note DATE: 08/26/16 TIME: 10:49 Assessment/Plan Lines/Catheters IV Catheter Type (from [facility]): Peripheral IV Crook in Place (from [facility]): No Assessment/Plan Assessment/Plan 40-year-old female with symptomatic cholelithiasis and possible choledocholithiasis. * Given the patient's elevated transaminases, it is likely that she passed a common bile duct stone. * Currently pain-free * Recommend advancing diet as tolerated * If tolerates diet and surgically stable for discharge home with outpatient elective cholecystectomy. Subjective 24 Hr Interval Summary Feels well. Denies abdominal pain. Is hungry. Afebrile. Exam/Review of Systems Vital Signs Vitals Vital Signs Date Time Temp Pulse Resp B/P Pulse Ox O2 Delivery O2 Flow Rate FiO2 08/26/16 07:45 98.8 55 18 104/60 94 08/25/16 19:29 Room Air Intake and Output 08/25/16 08/25/16 08/26/16 15:00 23:00 07:00 Intake Total 100 ml 800 ml Output Total 950 ml Balance 100 ml -150 ml Exam Free Text/Dictation GENERAL APPEARANCE: She is a well-developed, well-nourished, obese female who is awake, alert, and oriented x3 and in no acute distress at this time. HEENT: Pupils are equal and reactive to light and accommodation. Extraocular muscles are intact. There is no scleral icterus. Skin is not jaundiced. CARDIOVASCULAR: S1, S2. Regular rate and rhythm. No murmurs appreciated. RESPIRATORY: Clear to auscultation bilaterally. ABDOMEN: Obese, soft. Bowel sounds are present. There is no epigastric or right upper quadrant tenderness at this time. Her abdominal exam is benign at this time. There is no evidence of rebound or guarding, or other signs of peritonitis. EXTREMITIES: Free range of motion x4. Results Result Diagram: 08/26/16 0452 08/26/16 0452 SENTHIL QUINTERO MD Aug 26, 2016 10:50
--- NOTE | 2016-08-26 12:24 | PN ---
DATE: 08/26/2016 INTERNAL MEDICINE FOLLOWUP SUBJECTIVE: Chart reviewed. Events noted. The patient was seen by Dr. Hernandez in surgical consultat ion. The patient clinically has improved. She is pain free at this time and has been started on a diet. PHYSICAL EXAMINATION: VITAL SIGNS: Blood pressure 104/60, pulse 55, respirations 18, temperature 98.8, saturating 94%. HEENT: Pupils are equal and react to light. Anicteric sclerae. NECK: Supple, no JVD noted, no cervical lymphadenopathy noted, no carotid bruits heard. LUNGS: Fair breath sounds bilaterally. CARDIOVASCULAR: S1, S2 normal. ABDOMEN: Soft, nontender. Positive bowel sounds. EXTREMITIES: No clubbing, cyanosis, or edema noted. NEUROLOGIC: No focal deficits. LABORATORY DATA: WBC 5.3, hemoglobin 11.8, hematocrit 38.6, platelets 318. Sodium 142, potassium 4 .3, chloride 107, CO2 of 29, BUN 13, creatinine 0.75, glucose 112. AST 212, ALT 235, alkaline phosp hatase 131, total bilirubin 0.5. IMPRESSION: 1. Symptomatic cholelithiasis and possible choledocholithiasis. 2. Given some improvement in transaminases, it is likely that she may have passed a common bile dahlia t stone. 3. Overall improved. RECOMMENDATIONS: 1. Advance diet as per surgery. 2. Continue to monitor labs. 3. We will discharge once okay with surgery. Dictated By: RENATA KIMBLE MD, MA/MADDISON Conf#: [id number] DID#: [id number]
[2016-08-26 12:58] LABS: THYROID STIMULATING HORMONE 1.48 MIU/L (0.465-4.680)
[2016-08-26 13:19] LABS: HEPATITIS B CORE ANTIBODY NEGATIVE (NEGATIVE)
[2016-08-26 20:15] VITALS: BP 102/54; RESP 18
[2016-08-27] MEDS: PIPER-TAZO 3.375 GM IV (PMX) 100 ML IVPB SCH (05:33)
[2016-08-27 07:20] LABS: ALBUMIN/GLOBULIN RATIO 1.33; BILIRUBIN,INDIRECT 0.2 mg/dl (0-1.1); BILIRUBIN,TOTAL 0.2 mg/dl (0.2-1.3); CALCIUM 8.9 mg/dl (8.4-10.2); CREATININE 0.73 mg/dl (0.44-1.00); POTASSIUM 4.3 mmol/L (3.5-5.1)
[2016-08-27 07:45] VITALS: BP 107/56; RESP 16
[2016-08-27] MEDS: FAMOTIDINE 20 MG INJ IV SCH (08:50)
[2016-08-27] MEDS: D5W-0.45 NACL + KCL 20 MEQ 1,000 ML IV SCH (08:50)
--- NOTE | 2016-08-27 10:28 | PN ---
Date/Time of Note Date/Time of Note DATE: 08/27/16 TIME: 10:28 Assessment/Plan Lines/Catheters IV Catheter Type (from [facility]): Peripheral IV Crook in Place (from [facility]): No Assessment/Plan Assessment/Plan 40-year-old female with symptomatic cholelithiasis and possible choledocholithiasis. * Given the patient's elevated transaminases, it is likely that she passed a common bile duct stone. * Currently pain-free * Surgically stable for discharge home when medically cleared * Follow up as outpatient for elective cholecystectomy. Subjective 24 Hr Interval Summary Doing well. Tolerated regular diet without pain. Afebrile. Exam/Review of Systems Vital Signs Vitals Vital Signs Date Time Temp Pulse Resp B/P Pulse Ox O2 Delivery O2 Flow Rate FiO2 08/27/16 07:45 98.0 54 16 107/56 100 08/25/16 19:29 Room Air Intake and Output 08/26/16 08/26/16 08/27/16 15:00 23:00 07:00 Intake Total 400 ml 1780 ml 1110 ml Balance 400 ml 1780 ml 1110 ml Exam Free Text/Dictation GENERAL APPEARANCE: She is a well-developed, well-nourished, obese female who is awake, alert, and oriented x3 and in no acute distress at this time. CARDIOVASCULAR: S1, S2. Regular rate and rhythm. No murmurs appreciated. RESPIRATORY: Clear to auscultation bilaterally. ABDOMEN: Obese, soft. Bowel sounds are present. Non-tender. EXTREMITIES: Free range of motion x4. Results Result Diagram: 08/26/16 0452 08/27/16 0510 SENTHIL QUINTERO MD Aug 27, 2016 10:28
--- NOTE | 2016-08-27 10:45 | PDOCDIS ---
Discharge Instructions CONDITION Patient Condition: Stable HOME CARE INSTRUCTIONS: Special Diet: Soft ACTIVITY: Activity Restrictions: Slowly Increase Activity FOLLOW UP/APPOINTMENTS Appointments Please take your medications, and see your doctor in the clinic in 1 week. ALVIN HERNANDEZ. Aug 27, 2016 10:45
[2016-08-27] MEDS ORDERED: ONDA-43 PO (10:46)
--- NOTE | 2016-08-27 11:40 | DS ---
DATE OF ADMISSION: 08/25/2016 DATE OF DISCHARGE: 08/27/2016 HOSPITAL COURSE: A 40-year-old female originally admitted on 08/25/2016, being discharged home pend ing clearance from surgery team on 08/27/2016. The patient came in with abdominal pain, nausea, vom iting symptoms. She was diagnosed with symptomatic cholelithiasis. She was made n.p.o., given pain control medications, IV fluids and was admitted to medical/surgical floor. Started her also on emp iric antibiotics as well to treat early possible cholangitis. She was seen by general surgery team who recommended medical management at this time. The patient also had slightly elevated transaminas e as well and it was thought that she may have passed a common bile duct stone. Her bilirubins were normal. Her LFTs were slowly trending down. By the time of discharge, she was tolerating diet and had less pain symptoms, and no more nausea, vomiting symptoms. If she is cleared by surgery team medina smiley, she will be discharged home today in improved condition. Of note, she had a CT abdomen and pe lvis that showed no appendicitis, and mild retained stool within the proximal colon. Those were the only findings. The gallbladder ultrasound on admission did show cholelithiasis and a positive sono graphic Montes De Oca's sign suggestive of biliary colic, but there was no gallbladder wall thickening to s uggest cholecystitis. In any event, again if she is cleared today, [facility] DISCHARGE MEDICATIONS: She will be sent with: 1. [place] 5/325 one tab p.o. q.6h. p.r.n. 2. Zofran 4 mg p.o. q.6h. p.r.n. FOLLOWUP: She will need to follow up with the general surgery team and primary care doctor team in the clinic in the next 1 to 2 weeks. FINAL DIAGNOSES: 1. Abdominal pain, nausea, vomiting secondary to symptomatic cholelithiasis, possible choledocholit hiasis with the likelihood that she passed a common bile duct stone. 2. Elevated transaminases secondary to most likely passing a common bile duct stone, now improving. Time spent discharging the patient 40 minutes. Dictated By: ALVIN MATHEWS Conf#: [id number] [facility]#: [id number]
== END 2016-08-27 13:39 | disposition home or self-care (01) | DRG 446 ==
LOC: FTE 11:38 → PP2 16:47
PROVIDERS: ADMIT Family Medicine; ATTEND Family Medicine
DX: K80.70 Calculus of gallbladder and bile duct without cholecystitis without obstruction (principal); E66.01 Morbid (severe) obesity due to excess calories; R74.0 Nonspecific elevation of levels of transaminase and lactic acid dehydrogenase [LDH]; Z68.39 Body mass index [BMI] 39.0-39.9, adult
CPT/HCPCS: 80053; 80061; 81003; 82150; 83036; 83690; 83735; 84100; 84439; 84443; 84703; 85025; 85610; 85730; 86704; 86709; 86803; 87340; 96374; 96375; J2270; J2405; J2543; J2765; J3480

== ENCOUNTER 2017-06-16 23:00 | Emergency (ER) | END 2017-06-17 04:38 | disposition home or self-care (01) ==